=== PATIENT | male | born 1960 | race Caucasian/White ===

== ENCOUNTER 2016-09-14 17:14 | Observation (INO) | payer BC ==
--- NOTE | ~2016-09-14 | HP ---
History And Physical [address] [place]. [address] NAME: AUGUSTIN JUAREZ : 58 STATUS : ADM John PAT#: [id number] AGE: 56 ADM/REG DATE : 09/14/16 MR#: [id number] REPORT SERV DATE: 09/15/16 DICTATED BY: RAVI WALDROP DATE: 09/15/16 REPORT STATUS : Draft TRANSCRIBED BY: MODMaria M DATE: 09/15/16 DATE OF ADMISSION: 09/14/2016 GROOMING SALON MANAGER: Tanmay Noland M.D. CHIEF COMPLAINT: Heart fluttering and atypical chest pain. HISTORY OF PRESENT ILLNESS: A very pleasant 56-year-old white gentleman with no known history of CAD, states that over the last several days, he has had episodes of heart quivering and fluttering indicating the center of his chest. He states the episodes have increased in frequency and intensity over the last couple of days especially at work. On 09/11/2016, he reports a 20 second episode of palpitations with some diaphoresis and shortness of breath. He also reports some atypical right-sided chest discomfort described as a "dull ache" with some associated shortness of breath. He denies any nausea, dizziness, or belching. The chest pain is rated a 2/10 at its most intense. At the time of interview in [facility], he is pain free. He states the episode lasted a few seconds in duration. There is no exertional component described. The patient denies any personal history of myocardial infarction, stroke, DVT, or pulmonary embolus. The patient denies any recent fever or chills, episodic palpitations that have reportedly increased in intensity and frequency. Denies syncopal episodes. No PND or orthopnea. PAST MEDICAL HISTORY: 1. Hypertension. 2. Chronic diastolic heart failure. 3. Restrictive lung disease, occupational exposure. 4. Palpitations. 5. Chronic neck and back pain followed by Dr. Isidro. 6. Denies dyslipidemia or diabetes. PAST SURGICAL HISTORY: 1. Bilateral ear patches. 2. Partial thyroidectomy secondary to goiter. 3. Left index finger reattachment. SOCIAL HISTORY: He is with one child. He is an industrial specialist. Does not have a structured exercise routine. Denies tobacco or illicits. Occasionally consumes alcohol. FAMILY HISTORY: No embolic events reported in the first-degree relatives. Mother and sister of breast cancer. Father of lung and gastric cancer. Brother at the age of 23 in a motor vehicle accident. REVIEW OF SYSTEMS: A 14-point review of systems was performed, significant for HPI. No other contributory diagnoses identified. History And Physical [address] [address] NAME: AUGUSTIN JUAREZ : 58 STATUS : ADM John PAT#: [id number] AGE: 56 ADM/REG DATE : 09/14/16 MR#: [id number] REPORT SERV DATE: 09/15/16 DICTATED BY: RAVI WALDROP DATE: 09/15/16 REPORT STATUS : Draft TRANSCRIBED BY: LEVI DATE: 09/15/16 ALLERGIES: ALLERGY TO PENICILLIN, HIVES; LATEX, RASH. HOME MEDICATIONS: ProAir 2 puffs p.r.n., allopurinol 300 mg daily, benazepril 20 mg daily, chlorthalidone 25 mg daily, Flonase p.r.n., ibuprofen p.r.n., Imodium p.r.n., fish oil 1200 mg daily, Flomax 0.4 mg daily, recent prednisone following Celebrex for neck and back pain. Both discontinued. PHYSICAL EXAMINATION: BLOOD PRESSURE: 98/58, PULSE: 69, RESPIRATORY RATE: 12, TEMPERATURE: 98.1, O2 saturation 96% on room air. HEIGHT: 5 feet 10 inches, WEIGHT: 225 pounds. BMI of 32. GENERAL: Cooperative, in no apparent distress. HEENT: Pupils 2 mm, sclera nonicteric. Nares patent. Moist mucous membranes. No xanthelasma. NECK: Trachea midline, no thyromegaly. No JVD. No bruits. LYMPH: No cervical lymphadenopathy. No supraclavicular lymphadenopathy. RESPIRATORY: Unlabored respirations. Breath sounds clear bilaterally to posterior auscultation. No wheezes or rhonchi. CARDIOVASCULAR: Regular rate. No murmur, rub or gallop appreciated. EXTREMITIES: Without edema. Pulses 2+ bilaterally. ABDOMEN: Soft, nontender, nondistended, normal bowel sounds auscultated throughout. No organomegaly. SKIN: Warm, dry extremities. No pallor, or cyanosis. PSYCHIATRIC: Appropriate affect. Alert, oriented x3. LABORATORY DATA: Troponin is less than 0.02 x3. Potassium 3.5 (initially 2.8), BUN 15, creatinine 0.71, glucose 116, and magnesium 1.9. WBC 5.9, hemoglobin 15.6, hematocrit 43.4, and platelet count 212,000. D-dimer is less than 0.27. EKG, sinus rhythm. Stress echo, 2011: No ischemia, no chest pain with [address]-depression after walking a David stage 3. Cath, 03/2011 ([facility]): No significant CAD, EF of 60%. ASSESSMENT AND PLAN: 1. Atypical chest pain. The patient has been observed in the CPOU overnight to rule out myocardial infarction with serial enzymes, serial EKGs, and held n.p.o. We will proceed with MPI today. The patient will be discharged home if low risk, no ischemia. If anything suggestive of ischemia, Cardiology referral will be initiated. Otherwise, the patient will be asked to follow up with the PCP and Dr. Noland as appropriate. 2. Palpitations. Holter monitor at [facility]. Followup with Cardiology. 3. Hypokalemia. Electrolyte protocol in place. Repleted to 3.5, we will discharge on K- Dur 10 mEq daily. PCP followup with recommendation for recheck of potassium at that time. 4. Hypertension, well managed. Continue home medications. History And Physical [address] [address] NAME: AUGUSTIN JUAREZ : 58 STATUS : ADM John PAT#: [id number] AGE: 56 ADM/REG DATE : 09/14/16 MR#: [id number] REPORT SERV DATE: 09/15/16 DICTATED BY: RAVI WALDROP DATE: 09/15/16 REPORT STATUS : Draft TRANSCRIBED BY: MODL DATE: 09/15/16 DYLAN/LEVI IVY Ornelas, FURNITURE REMOVALIST-BC / [id number] CC: IVY Ornelas, FURNITURE REMOVALIST-BC Tommy Guevara M.D. Tanmay Noland M.D.
[2016-09-14 15:06] LABS: BASOPHILS 0.2 %; BASOPHILS ABSOLUTE 0.01 10/3/uL (0.0-0.16); EOSINOPHILS 1.4 %; EOSINOPHILS ABSOLUTE 0.08 10/3/uL (0.0-0.53); HEMATOCRIT 43.4 % (40.0-51.0); HEMOGLOBIN 15.6 g/dL (13.6-17.8); IMMATURE GRANULOCYTES 0.3 %; IMMATURE GRANULOCYTES ABSOLUTE 0.02 10/3/uL (0.0-0.11); LYMPHOCYTES 18.8 %; LYMPHOCYTES ABSOLUTE 1.11 10/3/uL (0.67-4.30); MANUAL DIFF NO %; MEAN CORPUS HGB CONC 35.9 g/dL (32.0-36.0); MEAN CORPUSCULAR HEMOGLOB 32.6 pg (26.0-34.0); MEAN CORPUSCULAR VOLUME 90.6 fL (80-100); MEAN PLATELET VOLUME 9.2 fL (9.2-13.0); MONOCYTES 8.5 %; NEUTROPHILS 70.8 %; NEUTROPHILS ABSOLUTE 4.19 10/3/uL (2.02-8.40); PLATELET COUNT 212 10/3/uL (150-400); RBC DISTRIBUTION WIDTH 12.5 % (12.0-16.0); RED CELL COUNT 4.79 10/6/uL (4.7-6.1); WHITE BLOOD CELLS 5.9 10/3/uL (4.5-10.5)
[2016-09-14 15:14] LABS: INTERNATIONAL NORMAL RATI 1.1 UNITS (-); PARTIAL THROMBO TIME 26.4 SEC (22.5-37.2); PROTIME (NOT ORD) 13.8 SEC (12.0-14.5)
[2016-09-14 15:29] LABS: BUN (BLOOD UREA NITROGEN) 15 MG/DL (6-23); CALCIUM, SERUM 9.1 MG/DL (8.5-10.4); CHEST PAIN PROFILE TAT 0 Hrs 27 Mins; CHLORIDE, SERUM 103 MMOL/L (96-112); CO2 (CARBON DIOXIDE) 30 MMOL/L (24-34); CREATININE 0.71 MG/DL (0.70-1.30); GFR AFRICAN AMERICAN 121 ML/MIN (>=60); GFR NON AFRICAN AMERICAN 104 ML/MIN (>=60); GLUCOSE, SERUM 116 MG/DL (60-99); SODIUM, SERUM 139 MMOL/L (135-148); TROPONIN I <0.02 NG/ML (<0.05)
[~2016-09-14 17:14] MED LIST: ASA5GR PO; CLARIT10 PO; LOTENSIN HCT1 TA2 PO
[2016-09-14] MEDS ORDERED: LOTE20 PO (18:25)
[2016-09-14] MEDS ORDERED: Z300 PO (18:25)
[2016-09-14] MEDS ORDERED: FLOMAX4 PO (18:25)
[2016-09-14] MEDS ORDERED: HYGROTON 25 MG25 MG PO (18:25)
[2016-09-14] MEDS ORDERED: FISH OIL1200 MG PO (18:26)
[2016-09-14] MEDS ORDERED: IMOD PO (18:26)
[2016-09-14] MEDS ORDERED: ADVIL PO (18:26)
[2016-09-14] MEDS ORDERED: FLONASE NAS (18:26)
[2016-09-14] MEDS ORDERED: PROAIR HFA INH (18:27)
[2016-09-15 01:52] LABS: TROPONIN I <0.02 NG/ML (<0.05)
[2016-09-15 05:53] LABS: POTASSIUM, SERUM 3.5 MMOL/L (3.5-5.3)
[2016-09-15 09:57] LABS: POTASSIUM, SERUM 2.8 MMOL/L (3.5-5.3)
[2016-09-15 10:36] LABS: FREE T4 0.82 NG/DL (0.76-1.46); ULTRASENSITIVE TSH 1.95 MCIU/ML (0.358-3.740)
[2016-09-15] MEDS ORDERED: KDUR20 PO (14:00)
== END 2016-09-15 14:24 | disposition home or self-care (01) ==
LOC: ER 17:14 → CDU1 18:10
PROVIDERS: Clinical Nurse Specialist; Emergency Medicine
DX: R07.89 Other chest pain (principal); R00.2 Palpitations; E87.6 Hypokalemia; I11.0 Hypertensive heart disease with heart failure; I50.32 Chronic diastolic (congestive) heart failure; Z98.890 Other specified postprocedural states; Z88.0 Allergy status to penicillin; Z91.040 Latex allergy status; Z79.899 Other long term (current) drug therapy
CPT/HCPCS: 71020; 78452; 80048; 83735; 84132; 84439; 84443; 84484; 85025; 85379; 85610; 85730; 93005; 93017; 99285; A9270-GY; A9502; G0378